=== PATIENT | female | born 1960 | race Caucasian/White ===

== ENCOUNTER 2023-11-02 13:31 | Emergency (ER) | payer OTHER, SELFPAY ==
[2023-11-02 13:43] VITALS: BP 174/97
--- NOTE | 2023-11-02 15:02 | ED.SKININJ ---
HPI-Injury
General
Chief Complaint: Fall
Time Seen by Provider: 11/02/23 13:54
Travel History
Have you had any contact with someone who has COVID-19?: No
Do you have any symptoms of coronavirus? Fever > 100 degrees, chills, cough, shortness of breath, sore throat, loss of taste or smell, muscle aches, or headache?: No
Course
Vital Signs
Initial and Last Documented VS:
Initial Vital Signs
Temp Pulse Resp Pulse Ox
98.1 F 88 20 96
11/02/23 13:36 11/02/23 13:36 11/02/23 13:36 11/02/23 13:36
Last Documented Vital Signs
Temp Pulse Resp BP Pulse Ox
98.1 F 88 20 174/97 96
11/02/23 13:36 11/02/23 13:36 11/02/23 13:36 11/02/23 13:43 11/02/23 13:36
ED Attending Note
-
Portions of this chart may have been created with voice recognition software.� Occasional wrong word or��sound alike� substitutions may have occurred due to the inherent limitations of voice recognition software.
Discharge Plan
Departure
Referrals:
[facility] [Other]
Interventions
Interventions:
*Risk Screen - Suicide Last Done: 11/02/23 13:36
*General Assessment Last Done: 11/02/23 13:36
*Neglect/Abuse Screening Last Done: 11/02/23 13:36
*ED COVID-19 Vaccine History Last Done: 11/02/23 14:50
ED-Musculoskeletal Assessment Last Done: 11/02/23 14:50
ED- Neurological Assessment Last Done: 11/02/23 14:50
ED-Skin Assessment Last Done: 11/02/23 14:50
Discharge Date and Time
Print Language: HUNGARIAN
--- NOTE | 2023-11-02 15:04 | ED.SKININJ ---
HPI-Injury
General
Chief Complaint: Fall
Source: patient
Exam Limitations: none
Time Seen by Provider: 11/02/23 13:54
Nursing documentation reviewed up to this point in time: agreed with
Travel History
Have you had any contact with someone who has COVID-19?: No
Do you have any symptoms of coronavirus? Fever > 100 degrees, chills, cough, shortness of breath, sore throat, loss of taste or smell, muscle aches, or headache?: No
History of Present Illness-Injury
Is this injury a work related problem?: No
Is pt an associate of [facility]?: No
Initial Injury comments:
Tripped on curb and fell. Denies hitting her head. Has large laceration to right vazquez. Injury occurred just [employer]. Brought to ED by EM for eval,.
Past History
Past History
ED Past Medical History: None
Review of Systems
Review of Systems
Allergies reviewed?: Yes
All Other Systems: ROS reviewed and negative except as documented in HPI and ROS
Constitutional: Reports no symptoms
Musculoskeletal: Reports no symptoms
Skin: Reports other (Large laceration to right vazquez)
Neurological: Reports no symptoms
Psychiatric: Reports no symptoms
Skin Exam
Laceration
Right Lower Leg:
Length in cm: 13
Type of Laceration: simple
Any active bleeding?: low grade venous oozing
Distal skin color and temperature: normal-warm & good color
Normal distal neurovascular exam: Yes
Range of motion: full
Phy Exam
General Physical Exam
General Presentation: well appearing and no apparent distress
General age: appears stated age
General Skin: warm and dry
General Habitus: normal
General Mental: alert
Neurological Exam
Neurological Exam: alert, oriented x3, no motor deficits, no sensory deficits and normal gait
Musculoskeletal Exam
Musculoskeletal Exam: full ROM, neuro vasc intact and other (ambulating without difficulty)
Skin Exam
Skin Exam: normal color, warm/dry and no rash
Psychiatric Exam
Psychiatric Exam: normal mood/affect
Course
Vital Signs
Initial and Last Documented VS:
Initial Vital Signs
Temp Pulse Resp Pulse Ox
98.1 F 88 20 96
11/02/23 13:36 11/02/23 13:36 11/02/23 13:36 11/02/23 13:36
Last Documented Vital Signs
Temp Pulse Resp BP Pulse Ox
98.1 F 88 20 174/97 96
11/02/23 13:36 11/02/23 13:36 11/02/23 13:36 11/02/23 13:43 11/02/23 13:36
Procedures
Laceration Closure
Right Lower Leg:
Status of Wound: clean
Description of Wound Edges: sharp
Preparation: cleaned with saline
Anesthesia: 1% Lidocaine with epi
Revision/Debridement: routine- no revision and irrigate-direct pressure
Wound exploration: explored to base- no FB and no tendon involvement
Type of Closure: single layer closure
Skin Closure Material: 4-0 prolene
Number of sutures: 15
*Critical Care Note
Total Time (30-74mins, 75-104mins- exclusive of procedures): Not Applicable
ED Attending Note
-
Portions of this chart may have been created with voice recognition software.� Occasional wrong word or��sound alike� substitutions may have occurred due to the inherent limitations of voice recognition software.
Discharge Plan
Departure
Patient Disposition: Home (Routine Discharge)
Date of Disposition: 11/02/23
Time of Disposition: 15:02
Patient with high blood pressure during this ER visit?: No
Condition: Good
Covid-19: Not Applicable
Discharge Problem:
Laceration of leg
Instructions: Contusion (DC), Laceration Repair With Stitches (DC), Preventing falls in adults
Prescriptions:
New
cephalexin 500 mg capsule
500 mg PO BID 10 Days Qty: 20 0RF
Referrals:
[facility] [Other] - Follow up in 2-3 days (Sutures can be removedin 7-10 days)
Interventions
Interventions:
*Risk Screen - Suicide Last Done: 11/02/23 13:36
*General Assessment Last Done: 11/02/23 13:36
*Neglect/Abuse Screening Last Done: 11/02/23 13:36
*ED COVID-19 Vaccine History Last Done: 11/02/23 14:50
ED-Musculoskeletal Assessment Last Done: 11/02/23 14:50
ED- Neurological Assessment Last Done: 11/02/23 14:50
ED-Skin Assessment Last Done: 11/02/23 14:50
Discharge Date and Time
Print Language: MALAYSIAN
== END 2023-11-02 15:25 | disposition home or self-care (01) ==
LOC: EMR 13:31
PROVIDERS: EMERGENCY PHYSICIAN Emergency Medicine
DX: S81.811A Laceration without foreign body, right lower leg, initial encounter (principal); W22.8XXA Striking against or struck by other objects, initial encounter
CPT/HCPCS: 99282; 12005